=== PATIENT | male | born 1995 | race Caucasian/White ===

== ENCOUNTER 2017-01-19 19:05 | Emergency (ER) | payer OTHER, MEDICAID | END 2017-01-19 19:54 | disposition left against medical advice (07) | LOC: ED 19:05 | DX: Z53.21 Procedure and treatment not carried out due to patient leaving prior to being seen by health care provider (principal) ==

== ENCOUNTER 2017-01-28 13:02 | Emergency (ER) | payer OTHER, MEDICAID ==
[2017-01-28 13:31] VITALS: BP 141/87
== END 2017-01-28 14:16 | disposition home or self-care (01) ==
LOC: ED 13:02
DX: Z48.00 Encounter for change or removal of nonsurgical wound dressing (principal); Z79.1 Long term (current) use of non-steroidal anti-inflammatories (NSAID); Z79.2 Long term (current) use of antibiotics